=== PATIENT | female | born 2000 | race Caucasian/White ===

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

== ENCOUNTER → 2018-01-19 15:30 | Outpatient (CLI) | payer BC, SELFPAY ==
[2018-01-19 17:24] LABS: Internal QC Validated? YES +Cl - CLEAR BKGD; Pregnancy, Urine Negative Negative
== END ==
PROVIDERS: Referring Provider Dermatology; Visit Provider Dermatology
DX: L70.0 Acne vulgaris (principal); L23.3 Allergic contact dermatitis due to drugs in contact with skin; Z79.899 Other long term (current) drug therapy
CPT/HCPCS: 81025

== ENCOUNTER → 2018-02-21 16:31 | Outpatient (CLI) | payer BC, SELFPAY ==
[2018-02-21 17:33] LABS: Internal QC Validated? YES +Cl - CLEAR BKGD; Pregnancy, Urine Negative Negative
--- OUTSIDE RECORDS SUMMARY | 2018-04-05 15:52 | XMS RPT_ITS ---
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 / Repository Z79.899(ICD-10) 01/19/2018 Unknown L70.0 - Acne Hollis Moore Active [facility] vulgaris / Community L70.0(ICD-10) Hospital Repository 01/19/2018 Unknown L23.3 - Allergic Hollis Moore Active [facility] contact Community dermatitis due to Hospital drugs in contact Repository with skin / L23.3(ICD-10) PROCEDURES PROCEDURES No Procedure Records FoundRESULTS RESULTS ,URINE Collected: 02/21/2018 Status: F Source: [facility] 4:41 PM [facility] REPOSITORY TYPE CODE TESTS RESULT OUT OF REFERENCE UNITS RANGE LAB L400.8000 Negative Normal HCGUQUAL Negative Result Comment: Very dilute urine specimens, as indicated by a low specific gravity, may not contain veterans service representative levels of hCG. If is still suspected, a first morning urine specimen should be collected 48 hours later and tested. Performed By: #### L400.7600 #### [facility] [address] [place], [place], [address] ,URINE Collected: 01/19/2018 Status: F Source: [place] 3:34 PM [facility] REPOSITORY TYPE CODE TESTS RESULT OUT OF REFERENCE UNITS RANGE LAB L400.8000 Negative Normal HCGUQUAL Negative Result Comment: Very dilute urine specimens, as indicated by a low specific gravity, may not contain veterans service representative levels of hCG. If is still suspected, a first morning urine specimen should be collected 48 hours later and tested. Performed By: #### L400.7600 #### [facility] [address] [place], [place], [id number] LIPID PROFILE Collected: 12/21/2017 Status: F Source: [place] 8:49 AM [facility] REPOSITORY Order Comment: PT HAS IUD DOESNT HAVE PERIODS TYPE CODE TESTS RESULT OUT OF RANGE REFERENCE UNITS LAB L501.4900 200 mg/dL Normal CHOL 141 Result Comment: <200 mg/dL Desirable 200-240 mg/dL Borderline >240 mg/dL High Risk LAB L501.5000 mg/dL Normal TRIG 84 Result Comment: The drugs N-Acetylcysteine and Metamizole may falsely depress this assay. Serum Triglycerides Reference Interval Normal <150 mg/dL Borderline high 150 - 199 mg/dL High 200 - 499 mg/dL Very High > or = 500 mg/dL LAB L501.6400 mg/dL Normal HDL 62 Result Comment: The drugs N-Acetylcysteine and Metamizole may falsely depress this assay. Reference Range HDL <40 mg/dL Low HDL Cholesterol HDL >or= 60 mg/dL High HDL Cholesterol LAB L501.6500 0-130 mg/dL Normal LDL 62 LAB L501.6600 5-40 mg/dL Normal VLDL 17 Performed By: #### L500.4100, L501.4100, L501.4405 #### [facility] [address] [place], [place], [address] AST(SGOT) Collected: 12/21/2017 Status: F Source: [place] 8:49 AM [facility] REPOSITORY Order Comment: PT HAS IUD DOESNT HAVE PERIODS TYPE CODE TESTS RESULT OUT OF RANGE REFERENCE UNITS LAB L501.4100 15-37 U/L Normal AST 16 Performed By: #### L500.4100, L501.4100, L501.4405 #### [facility] [address] [place], [address] ALANINE AMINOTRANSFERAS Collected: 12/21/2017 Status: F Source: [facility] (SGPT) 8:49 AM [facility] REPOSITORY Order Comment: PT HAS IUD DOESNT HAVE PERIODS TYPE CODE TESTS RESULT OUT OF RANGE REFERENCE UNITS LAB L501.4405 13-56 U/L Normal ALT 21 Performed By: #### L500.4100, L501.4100, L501.4405 #### [facility] [address] [place], [place], [address] HCG TITER QUANT., Collected: 12/21/2017 Status: F Source: [facility] SERUM 8:49 AM [facility] REPOSITORY Order Comment: PT HAS IUD DOESNT HAVE PERIODS TYPE CODE TESTS RESULT OUT OF RANGE REFERENCE UNITS LAB L700.8000 <9 non-preg mIU/mL Normal HCG < 1 QUANT. Performed By: #### L700.8000 #### [facility] [address] [place], [address] LDL, DIRECT Collected: 12/21/2017 Status: F Source: [place] 8:49 AM [facility] REPOSITORY TYPE CODE TESTS RESULT OUT OF RANGE REFERENCE UNITS LAB L3300.4500 0-109 mg/dL Normal LDL,DIR 79 240119 Result Comment: Performed at: - [facility] [address], [place], [place] [id number] [employer]: Navarro Syed PhD, Phone: [phone] LAB X2374.9901 . Normal Test not COMMENT performed Performed By: #### L3300.7890 #### [facility] (refer to report for specific site) refer to report for address and phone number ,URINE Collected: 11/17/2017 Status: F Source: [place] 3:51 PM [facility] REPOSITORY TYPE CODE TESTS RESULT OUT OF REFERENCE UNITS RANGE LAB L400.8000 Negative Normal HCGUQUAL Negative Result Comment: Very dilute urine specimens, as indicated by a low specific gravity, may not contain veterans service representative levels of hCG. If is still suspected, a first morning urine specimen should be collected 48 hours later and tested. Performed By: #### L400.7600 #### [facility] [address] [place], [address] ALLERGIES ALLERGIES No Allergies Records FoundENCOUNTERS ENCOUNTERS ADMIT/DISCHARGE ACCOUNT ADMITTING ENCOUNTER LOCATION SOURCE NUMBER CLASS 02/21/2018 [id number] Ambulatory [place] [facility] [address] [facility] ing:LAB Repository 01/19/2018 [id number] [facility] [place] [address] [facility] ing:LAB Repository 12/21/2017 [id number] Ambulatory [place] [address] [facility] ing:LAB Repository 11/17/2017 [id number] [facility] [place] [address] [facility] ing:LAB Repository PAYERS PAYERS ENCOUNTER GUARANTOR PAYER SUBSCRIBER SOURCE 02/21/2018 JOSÉ MIGUEL P Primary JUAN [facility] [id number] Insurance:[facility] y Number: [place], [place] [id number] Repository [address]Uur: [phone]) Date:6764-35-03MP [phone] () [id number] [place] [address]BF: 02/21/2018 Secondary NOT GIVENUNK [facility] Insurance:SELF PAY [facility] Number: Effective Repository Date:2018-02-21 01/19/2018 JOSÉ MIGUEL P Primary JUAN [facility] [id number] Insurance:[facility] y Number: [place], [place] [id number] Repository [address]Ehx: ([phone]) Date:9101-74-14TB [phone] () [id number], [place] [address]UE: 01/19/2018 Secondary NOT GIVENUNK [place] Insurance:SELF PAY [facility] Number: Effective Repository Date:2018-01-19 12/21/2017 JOSÉ MIGUEL P Primary JUAN [facility] [id number] [facility] [place] [id number] Repository [address]Aow: [phone]) Date:6269-21-45SL [phone] () [id number], [place] [address]QI: 12/21/2017 Secondary NOT GIVENUNK [place] Insurance:SELF PAY [facility] Hospital Number: Effective Repository Date:2017-12-21 11/17/2017 JOSÉ MIGUEL P Primary JUAN [place] [id number] [facility] y Number: [facility] [place] [id number] Repository [address]Pwu: [phone]) Date:3324-26-32QQ [phone] () [address], [place] [address]XY: 11/17/2017 Secondary NOT GIVENUNK [place] Insurance:SELF PAY [facility] Hospital Number: Effective Repository Date:2017-11-17
== END ==
PROVIDERS: Referring Provider Dermatology; Visit Provider Dermatology
DX: L70.0 Acne vulgaris (principal); L23.3 Allergic contact dermatitis due to drugs in contact with skin; Z79.899 Other long term (current) drug therapy
CPT/HCPCS: 81025

== ENCOUNTER → 2018-04-07 16:32 | Outpatient (CLI) | payer BC, SELFPAY ==
[2018-04-07 17:36] LABS: Internal QC Validated? YES +Cl - CLEAR BKGD; Pregnancy, Urine Negative Negative
== END ==
PROVIDERS: Referring Provider Dermatology; Visit Provider Dermatology
DX: L70.0 Acne vulgaris (principal); L23.3 Allergic contact dermatitis due to drugs in contact with skin; Z79.899 Other long term (current) drug therapy
CPT/HCPCS: 81025

== ENCOUNTER → 2018-05-09 10:45 | Outpatient (CLI) | payer BC, SELFPAY ==
[2018-05-09 12:41] LABS: Internal QC Validated? YES +Cl - CLEAR BKGD; Pregnancy, Urine Negative Negative
== END ==
PROVIDERS: Referring Provider Dermatology; Visit Provider Dermatology
DX: L70.0 Acne vulgaris (principal); L23.3 Allergic contact dermatitis due to drugs in contact with skin; Z79.899 Other long term (current) drug therapy
CPT/HCPCS: 81025

== ENCOUNTER → 2018-06-27 14:37 | Outpatient (CLI) | payer BC, SELFPAY ==
[2018-06-27 15:27] LABS: Internal QC Validated? YES +Cl - CLEAR BKGD; Pregnancy, Urine Negative Negative
== END ==
PROVIDERS: Referring Provider Dermatology; Visit Provider Dermatology
DX: L70.0 Acne vulgaris (principal); L23.3 Allergic contact dermatitis due to drugs in contact with skin; Z79.899 Other long term (current) drug therapy
CPT/HCPCS: 36415; 81025

== ENCOUNTER → 2021-03-06 13:43 | Outpatient (CLI) | payer BC, SELFPAY | PROVIDERS: Visit Provider Family Medicine | DX: Z23 Encounter for immunization (principal) ==